=== PATIENT | male | born 1950 | race Caucasian/White ===

== ENCOUNTER 2019-05-31 06:20 | Day surgery (SDC) | payer MEDICARE, OTHER ==
[~2019-05-31] VITALS: Ht 170.2 cm; Wt 81.0 kg
[2019-05-31 07:48] VITALS: BP 142/68
[2019-05-31 07:55] LABS: INTERNATIONAL NORMALIZED RATIO 1.07 (0.93-1.1); PROTHROMBIN TIME 11.3 Seconds (9.6-11.5)
[2019-05-31] MEDS ORDERED: SODIUM CHLORIDE 0.9% 1,000 ML IV SCH (08:00)
[2019-05-31] MEDS ORDERED: [UNRECOGNIZED DRUG - OTHER] (08:03)
[2019-05-31] MEDS ORDERED: NOVALOG SQ (08:03)
[2019-05-31] MEDS ORDERED: VIT B 12 PO (08:03)
[2019-05-31] MEDS ORDERED: SODI325T PO (08:03)
[2019-05-31] MEDS ORDERED: LOSA100T14 PO (08:03)
[2019-05-31] MEDS ORDERED: FURO20TA3 PO (08:03)
[2019-05-31] MEDS ORDERED: AMLO-150 PO (08:03)
[2019-05-31] MEDS ORDERED: VIT D2 PO (08:03)
[2019-05-31] MEDS ORDERED: GINGER ROOT PO (08:03)
[2019-05-31] MEDS ORDERED: INSU100V13 SQ (08:03)
[2019-05-31] MEDS ORDERED: MIDAZOLAM 1 MG/ML, 5ML ONE (09:46)
[2019-05-31] MEDS ORDERED: FENTANYL PF 100 MCG/2ML ONE (09:46)
[2019-05-31] MEDS ORDERED: NALOXONE 1 MG/ML, 2ML ONE (09:46)
[2019-05-31] MEDS ORDERED: FLUMAZENIL 0.1 MG/1 ML, 5ML ONE (09:46)
== END 2019-05-31 13:50 | disposition home or self-care (01) ==
LOC: OUT 06:20
PROVIDERS: ATTEND Internal Medicine Nephrology
DX: E11.22 Type 2 diabetes mellitus with diabetic chronic kidney disease (principal); E11.21 Type 2 diabetes mellitus with diabetic nephropathy; I12.9 Hypertensive chronic kidney disease with stage 1 through stage 4 chronic kidney disease, or unspecified chronic kidney disease; N18.3 Chronic kidney disease, stage 3 (moderate); E55.9 Vitamin D deficiency, unspecified; E78.5 Hyperlipidemia, unspecified; E66.3 Overweight; Z68.28 Body mass index [BMI] 28.0-28.9, adult; Z79.4 Long term (current) use of insulin; Z79.899 Other long term (current) drug therapy; Z87.891 Personal history of nicotine dependence; Z90.49 Acquired absence of other specified parts of digestive tract; Z98.890 Other specified postprocedural states
CPT/HCPCS: 36415; 50200; 77012; 85049; 85610; 88300; 99156; 99157; J2250; J3010; J2310

== ENCOUNTER 2020-01-09 13:51 | Emergency (ER) | payer MEDICARE ==
[~2020-01-09] VITALS: Ht 180.3 cm; Wt 85.0 kg
[~2020-01-09 13:51] MED LIST: AMLO-150 PO; FURO20TA3 PO; GINGER ROOT PO; INSU100V13 SQ; LOSA100T14 PO; NOVALOG SQ; SODI325T PO; VIT B 12 PO; VIT D2 PO; [UNRECOGNIZED DRUG - OTHER]
--- NOTE | 2020-01-09 14:07 | NUR ---
Assumed care of patient. C/O RUQ and epigastric pain. C/O N/V. Hx of gallstones. It is unclear if he still has a gallbladder. last week and patient reports depression. Placed on NIBP, pulse ox, and operations specialists. Will continue to monitor.
[2020-01-09] MEDS ORDERED: LOSA50TA14 PO (14:35)
[2020-01-09] MEDS ORDERED: SODI650T PO (14:35)
[2020-01-09] MEDS ORDERED: MULT-658 PO (14:37)
[2020-01-09 15:15] LABS: ALANINE AMINOTRANSFERASE 29 U/L (12-78); ALBUMIN 3.3 g/dL (3.4-5.0); ANION GAP 7 mmol/L (5-15); CALCIUM 8.7 mg/dL (8.5-10.1); CHLORIDE 103 mmol/L (98-107)
[2020-01-09 15:17] LABS: ALKALINE PHOSPHATASE 88 U/L (45-117); BILIRUBIN,TOTAL 1.1 mg/dL (0.2-1.0); TOTAL PROTEIN 7.2 g/dL (6.4-8.2)
--- NOTE | 2020-01-09 15:54 | NUR ---
Provided with blanket. VSS.
[2020-01-09 16:02] LABS: MEAN CORPUSCULAR HEMOGLOBIN 33.1 pg (27.5-34.5); MEAN CORPUSCULAR HGB CONC 33.8 g/dL (33.2-36.2); MEAN CORPUSCULAR VOLUME 97.8 fL (81-97); MEAN PLATELET VOLUME 10.2 fL (7.4-10.4); PLATELET COUNT 58 x10^3/uL (130-400); RED BLOOD COUNT 3.29 x10^6/uL (4.38-5.82)
[2020-01-09 16:05] LABS: MD YES
[2020-01-09 16:11] LABS: BAND#(MANUAL) 1.78 x10^3/uL; BANDS%(MANUAL) 16 % (0-7); LYMPH#(MANUAL) 0.67 x10^3/uL (1-3.4); LYMPHS% (MANUAL) 6 % (22-44); METAMYELOCYTES# (MANUAL) 0.22 x10^3/uL (0-0); METAMYELOCYTES% (MANUAL) 2 % (0-1); MONOS#(MANUAL) 0.22 x10^3/uL (0.3-2.7); MONOS% (MANUAL) 2 % (2-9); SEG#(MANUAL) 8.21 x10^3/uL (1.8-6.8); SEGS% (MANUAL) 74 % (42-75)
[2020-01-09 16:12] LABS: ANISOCYTOSIS 1+
[2020-01-09 16:16] LABS: <PLATELET ESTIMATE> DECREASED; <PLT MORPHOLOGY> NORMAL PLT MORPH
[2020-01-09 16:22] LABS: TROPONIN I < 0.015 ng/mL (0.000-0.045)
--- NOTE | 2020-01-09 16:49 | NUR ---
[address] at bedside.
[2020-01-09 17:45] VITALS: BP 141/73
--- NOTE | 2020-01-09 17:47 | NUR ---
Patient/Caregiver given discharge instructions and they have confirmed that they understand the instructions. Patient ambulatory with steady gait.
== END 2020-01-09 17:49 | disposition home or self-care (01) ==
LOC: ED 14:18
DX: R10.13 Epigastric pain (principal); F43.21 Adjustment disorder with depressed mood; R94.31 Abnormal electrocardiogram [ECG] [EKG]
CPT/HCPCS: 36415; 80053; 80307; 83690; 84484; 85025; 93005; 99284

== ENCOUNTER 2020-03-05 10:26 | Emergency (ER) | payer MEDICARE ==
[~2020-03-05] VITALS: Ht 170.2 cm; Wt 76.5 kg
[~2020-03-05 10:26] MED LIST changes: +CEFD300C37 PO; +CEPH750C9 PO; +DOXY100T PO; +INSU100I28 SQ; +LACT1CAP35 PO; +LISI10TA2 PO; +LOSA50TA14 PO; +MIRT15TA PO; +MULT-658 PO; +PANT40GR PO; +PROP10TA51 PO; +SODI650T PO
--- NOTE | 2020-03-05 11:02 | NUR ---
PT HERE RECENTLY FOR GI BLEED. PT REQUIRED MULTIPLE BLOOD TRANSFUSIONS AND WAS RELEASED JUST YESTERDAY, PT STATES HE WAS TOLD TO COME BACK IF BLEEDING HADNT STOPPED, PT REPORTS DARK TARRY STOOLS, DENIES VOMITTING BLOOD. PT REPORTS SOME NAUSEA, NO REPORTS OF CP, SOB. PT TO ALL MONITORS AT THIS TIME. ERP IN TO EVAL PT
[2020-03-05 11:25] LABS: BASOPHILS % (AUTO) 1 % (0-1); EOSINOPHILS % (AUTO) 5 % (1-7); LYMPHOCYTES % (AUTO) 14 % (22-44); MEAN CORPUSCULAR HEMOGLOBIN 30.5 pg (27.5-34.5); MEAN CORPUSCULAR HGB CONC 33.4 g/dL (33.2-36.2); MEAN PLATELET VOLUME 9.4 fL (7.4-10.4); MONOCYTES % (AUTO) 8 % (2-9); NEUTROPHILS % (AUTO) 73 % (42-75); PLATELET COUNT 86 x10^3/uL (130-400); RED BLOOD COUNT 2.73 x10^6/uL (4.38-5.82); RED CELL DISTRIBUTION WIDTH 15.9 % (9.4-14.8)
[2020-03-05 11:30] LABS: MD NO
[2020-03-05 11:34] LABS: INTERNATIONAL NORMALIZED RATIO 1.15 (0.93-1.1); PROTHROMBIN TIME 12.2 Seconds (9.6-11.5)
[2020-03-05 11:38] LABS: ALBUMIN 2.8 g/dL (3.4-5.0); ANION GAP 5 mmol/L (5-15); CALCIUM 8.2 mg/dL (8.5-10.1); CHLORIDE 113 mmol/L (98-107)
[2020-03-05 11:41] VITALS: BP 141/68
[2020-03-05 11:42] LABS: ALANINE AMINOTRANSFERASE 34 U/L (12-78); ALKALINE PHOSPHATASE 130 U/L (45-117); BILIRUBIN,TOTAL 0.9 mg/dL (0.2-1.0); CREATININE 2.09 mg/dL (0.7-1.3); TOTAL PROTEIN 5.9 g/dL (6.4-8.2)
--- NOTE | 2020-03-05 12:30 | NUR ---
PT RESTING ON AMANDEEP, VSS, NAD NOTED. PT PLACED FOR RECHECK
--- NOTE | 2020-03-05 12:53 | NUR ---
ERMD IN TO UPDATE PT ON DISPO, ANTICIPATE DC
== END 2020-03-05 13:46 | disposition home or self-care (01) ==
LOC: ED 11:20
DX: K92.2 Gastrointestinal hemorrhage, unspecified (principal); E11.9 Type 2 diabetes mellitus without complications; I10 Essential (primary) hypertension
CPT/HCPCS: 36415; 80053; 83690; 85025; 85610; 99283

== ENCOUNTER → 2020-04-24 | Outpatient (CLI) | payer MEDICARE ==
[~2020-04-24] MED LIST changes: +MIRT-37 PO; -MIRT15TA PO
== END | disposition home or self-care (01) ==
LOC: STAR 13:11
PROVIDERS: ATTEND Anesthesiology
DX: Z20.828 Contact with and (suspected) exposure to other viral communicable diseases (principal)
CPT/HCPCS: 87635

== ENCOUNTER 2020-04-29 11:25 | Inpatient (IN) | payer MEDICARE ==
[~2020-04-29] VITALS: Ht 170.2 cm; Wt 77.5 kg
[2020-04-29] VITALS (10 sets, daily range): BP systolic 114–161; BP diastolic 55–72
[2020-04-29 12:14] LABS: BASOPHILS % (AUTO) 1 % (0-1); EOSINOPHILS % (AUTO) 9 % (1-7); LYMPHOCYTES % (AUTO) 19 % (22-44); MEAN CORPUSCULAR HEMOGLOBIN 27.7 pg (27.5-34.5); MEAN CORPUSCULAR HGB CONC 32.2 g/dL (33.2-36.2); MEAN PLATELET VOLUME 9.5 fL (7.4-10.4); MONOCYTES % (AUTO) 9 % (2-9); NEUTROPHILS % (AUTO) 62 % (42-75); PLATELET COUNT 120 x10^3/uL (130-400); RED BLOOD COUNT 2.38 x10^6/uL (4.38-5.82); RED CELL DISTRIBUTION WIDTH 16.3 % (9.4-14.8)
--- NOTE | 2020-04-29 12:17 | NUR ---
jasmin was in room, labs pending. as
[2020-04-29 12:21] LABS: ALBUMIN 3.1 g/dL (3.4-5.0); ANION GAP 7 mmol/L (5-15); CALCIUM 8.9 mg/dL (8.5-10.1); CHLORIDE 110 mmol/L (98-107); CREATININE 2.47 mg/dL (0.7-1.3)
[2020-04-29 12:34] LABS: MD MORPH REVIEW ONLY
[2020-04-29 12:35] LABS: ANISOCYTOSIS 1+; HYPOCHROMIA 1+; POLYCHROMASIA 1+
[2020-04-29 12:36] LABS: <PLATELET ESTIMATE> DECREASED; <PLT MORPHOLOGY> NORMAL PLT MORPH; MICROCYTOSIS 1+
--- NOTE | 2020-04-29 13:10 | NUR ---
ED PA AT BEDSIDE, PT C/O INCREASING EPGASTRIC ABD PAIN. ADMIT POC DISCUSSED AND QUESTIONS ANSWERED.
[2020-04-29] MEDS ORDERED: OCTREOTIDE 500 MCG in SODIUM CHLORIDE 0.9% 99 ML IV PRN (13:30)
[2020-04-29] MEDS ORDERED: OCTREOTIDE 100MCG/ML, 1ML (0.1MG/ML) IV ONE (13:30)
[2020-04-29] MEDS ORDERED: PANTOPRAZOLE 80 MG in SODIUM CHLORIDE 0.9% 50 ML IVPB ONE (13:30)
[2020-04-29] MEDS ORDERED: PANTOPRAZOLE 80 MG in SODIUM CHLORIDE 0.9% 100 ML IV SCH (13:30)
--- NOTE | 2020-04-29 13:43 | NUR ---
1ST UNIT INFUSED. URINAL EMPTIED. PT TBADM, AWARE.
--- NOTE | 2020-04-29 13:55 | NUR ---
blood and meds requested. report to kushal joyner. as
--- NOTE | 2020-04-29 14:54 | NUR ---
PT RESTING IN [place], MONITORING IN PLACE, WILL CONTINUE TO MONITOR.
[2020-04-29] MEDS: PANTOPRAZOLE 80 MG in SODIUM CHLORIDE 0.9% 100 ML IV SCH (15:24)
[2020-04-29] MEDS: SODIUM CHLORIDE 0.9% 1,000 ML IV SCH ×2 (15:30)
[2020-04-29] MEDS ORDERED: PHARMACY MAY ADJ FOR RENAL FX MC PRN (15:30)
[2020-04-29] MEDS ORDERED: ONDANSETRON 2MG/ML, 2ML IV PRN (15:30)
[2020-04-29] MEDS ORDERED: ACETAMINOPHEN 325 MG TABLET PO ONE (15:30)
--- NOTE | 2020-04-29 19:46 | NUR ---
annika rn: urinal emptied 600ml, pt asking for anx meds. side rails up, call light in use.
[2020-04-29] MEDS: MELATONIN 5 MG TABLET PO SCH (23:23)
[2020-04-29] MEDS: ACETAMINOPHEN 325 MG TABLET PO PRN (23:54)
[2020-04-30] MEDS: SODIUM CHLORIDE 0.9% 1,000 ML IV SCH ×2 (01:21→10:32)
[2020-04-30 02:55] VITALS: BP 118/62
[2020-04-30 05:44] LABS: BASOPHILS % (AUTO) 1 % (0-1); EOSINOPHILS % (AUTO) 10 % (1-7); LYMPHOCYTES % (AUTO) 27 % (22-44); MEAN CORPUSCULAR HEMOGLOBIN 27.8 pg (27.5-34.5); MEAN CORPUSCULAR HGB CONC 33.4 g/dL (33.2-36.2); MEAN PLATELET VOLUME 9.4 fL (7.4-10.4); MONOCYTES % (AUTO) 11 % (2-9); NEUTROPHILS % (AUTO) 51 % (42-75); PLATELET COUNT 83 x10^3/uL (130-400); RED CELL DISTRIBUTION WIDTH 15.8 % (9.4-14.8)
[2020-04-30 05:45] LABS: INTERNATIONAL NORMALIZED RATIO 1.19 (0.93-1.1); PROTHROMBIN TIME 12.6 Seconds (9.6-11.5)
[2020-04-30 05:49] LABS: MD SCAN
[2020-04-30] MEDS: ACETAMINOPHEN 325 MG TABLET PO PRN ×3 (05:51→20:19)
[2020-04-30 06:06] LABS: ANION GAP 8 mmol/L (5-15); CALCIUM 8.4 mg/dL (8.5-10.1); CHLORIDE 112 mmol/L (98-107); CREATININE 2.61 mg/dL (0.7-1.3)
[2020-04-30 07:43] VITALS: BP 124/64
[2020-04-30] MEDS ORDERED: PROPOFOL 10 MG/ML, 50ML ONE (08:46)
[2020-04-30] MEDS ORDERED: DIPHENHYDRAMINE 50 MG/ML, 1ML IVPush PRN (09:30)
[2020-04-30] MEDS ORDERED: FENTANYL PF 100 MCG/2ML IV PRN (09:30)
[2020-04-30] MEDS ORDERED: EPHEDRINE 50 MG/ML, 1ML IM PRN (09:30)
[2020-04-30] MEDS ORDERED: EPHEDRINE 50 MG/ML, 1ML IVPush PRN (09:30)
[2020-04-30] MEDS ORDERED: ONDANSETRON 2MG/ML, 2ML IVPush PRN (09:30)
[2020-04-30] MEDS ORDERED: LABETALOL 5MG/ML, 20ML IV PRN (09:30)
[2020-04-30] MEDS ORDERED: PROMETHAZINE 25 MG/ML, 1ML IVPush PRN (09:30)
[2020-04-30] MEDS: PANTOPRAZOLE 80 MG in SODIUM CHLORIDE 0.9% 100 ML IV SCH ×2 (10:32→21:42)
[2020-04-30 12:45] VITALS: BP 146/67
[2020-04-30] MEDS: OCTREOTIDE 500 MCG in SODIUM CHLORIDE 0.9% 99 ML IV SCH (14:05)
[2020-04-30] MEDS ORDERED: GOLYTELY 4,000ML ORAL.SOL PO ONE (17:00)
[2020-04-30 18:20] VITALS: BP 148/82
[2020-04-30] MEDS: MELATONIN 5 MG TABLET PO SCH (20:19)
[2020-04-30 23:20] LABS: INTERNATIONAL NORMALIZED RATIO 1.15 (0.93-1.1); PROTHROMBIN TIME 12.2 Seconds (9.6-11.5)
[2020-05-01] MEDS: SODIUM CHLORIDE 0.9% 1,000 ML IV SCH ×2 (00:03→13:24)
[2020-05-01 01:31] VITALS: BP_SYST 154; BP_SYST 160; BP_DIAS 73; BP_DIAS 74
[2020-05-01] MEDS: OCTREOTIDE 500 MCG in SODIUM CHLORIDE 0.9% 99 ML IV SCH (02:00)
[2020-05-01] MEDS: ACETAMINOPHEN 325 MG TABLET PO PRN (02:00)
[2020-05-01 06:14] LABS: BASOPHILS % (AUTO) 1 % (0-1); EOSINOPHILS % (AUTO) 11 % (1-7); LYMPHOCYTES % (AUTO) 21 % (22-44); MEAN CORPUSCULAR HEMOGLOBIN 27.9 pg (27.5-34.5); MEAN CORPUSCULAR HGB CONC 33.5 g/dL (33.2-36.2); MEAN PLATELET VOLUME 9.5 fL (7.4-10.4); MONOCYTES % (AUTO) 10 % (2-9); NEUTROPHILS % (AUTO) 58 % (42-75); PLATELET COUNT 101 x10^3/uL (130-400); RED BLOOD COUNT 3.16 x10^6/uL (4.38-5.82); RED CELL DISTRIBUTION WIDTH 15.8 % (9.4-14.8)
[2020-05-01 06:18] LABS: MD NO
[2020-05-01 06:21] LABS: ANION GAP 7 mmol/L (5-15); CALCIUM 8.2 mg/dL (8.5-10.1); CHLORIDE 109 mmol/L (98-107)
[2020-05-01 06:23] LABS: CREATININE 2.42 mg/dL (0.7-1.3)
[2020-05-01] MEDS ORDERED: CHLORHEXIDINE 15 ML UDC ONE (08:05)
[2020-05-01] MEDS ORDERED: PANTOPRAZOLE 40 MG IV IVPush SCH (09:00)
[2020-05-01 09:20] VITALS: BP 148/70
[2020-05-01] MEDS ORDERED: PANT40TA6 PO (12:25)
[2020-05-01 12:38] VITALS: BP 117/63
== END 2020-05-01 13:49 | disposition home or self-care (01) | DRG 378 ==
LOC: ED 13:06 → EDIP 13:07 → ED 13:38 → 5SO 21:25 → DCLOUNGE 05-01 13:43
PROVIDERS: ADMIT Internal Medicine; ATTEND Family Medicine
PROC: 30233N1 Transfusion of Nonautologous Red Blood Cells into Peripheral Vein, Percutaneous Approach (ICD-10-PCS; principal; 2020-04-29)
PROC: 0DJ08ZZ Inspection of Upper Intestinal Tract, Via Natural or Artificial Opening Endoscopic (ICD-10-PCS; 2020-04-30)
PROC: 0DBN8ZZ Excision of Sigmoid Colon, Via Natural or Artificial Opening Endoscopic (ICD-10-PCS; 2020-05-01)
DX: K92.2 Gastrointestinal hemorrhage, unspecified (principal); K76.6 Portal hypertension; D62 Acute posthemorrhagic anemia; I12.9 Hypertensive chronic kidney disease with stage 1 through stage 4 chronic kidney disease, or unspecified chronic kidney disease; B18.2 Chronic viral hepatitis C; E11.22 Type 2 diabetes mellitus with diabetic chronic kidney disease; F12.90 Cannabis use, unspecified, uncomplicated; K31.89 Other diseases of stomach and duodenum; K63.5 Polyp of colon; K64.8 Other hemorrhoids; N18.9 Chronic kidney disease, unspecified; Z79.4 Long term (current) use of insulin; Z85.05 Personal history of malignant neoplasm of liver; Z87.891 Personal history of nicotine dependence; Z79.899 Other long term (current) drug therapy; K74.60 Unspecified cirrhosis of liver
CPT/HCPCS: 36415; 36430; 74176; 80048; 82040; 83735; 85014; 85018; 85025; 85610; 85730; 86850; 86900; 86923; 87635; 88305; 96374; 96375; 99291; G0378; J2354; J2405; J2704; C9113; J7030; P9016

== ENCOUNTER → 2020-11-13 | Outpatient (CLI) | payer MEDICARE ==
[~2020-11-13] MED LIST changes: +LISI10TA19 PO; -LISI10TA2 PO; +OMEP-110 PO; +PANT40TA6 PO
== END | disposition home or self-care (01) ==
LOC: CFH 08:24 → EDSTATUS 09:30
PROVIDERS: ATTEND Physician Assistant
DX: K74.60 Unspecified cirrhosis of liver (principal); R16.1 Splenomegaly, not elsewhere classified; Z90.49 Acquired absence of other specified parts of digestive tract
CPT/HCPCS: 76705